=== PATIENT | male | born 1945 | race Caucasian/White ===

== ENCOUNTER → 2022-01-11 12:53 | Outpatient (CLI) | payer OTHER, SELFPAY | PROVIDERS: PCP Pediatrics; Referring Provider Pediatrics; Visit Provider Pediatrics | DX: R01.1 Cardiac murmur, unspecified (principal) | CPT/HCPCS: 93005 ==

== ENCOUNTER → 2022-11-04 15:16 | Outpatient (CLI) | payer OTHER, SELFPAY ==
[2022-11-04 15:31] LABS: Hematocrit 45.6 % (41-53); Hemoglobin 15.5 g/dL (13.5-17.5); Mean Corpuscular Hemoglobin 31.3 PG (26-34); Platelet Count 228 X10^3/uL (150-400); Red Blood Cell Count 4.95 X10^6/uL (4.5-5.9); Red Cell Distribution Width 13.1 % (11.6-14.8); White Blood Cell Count 8.9 X10^3/uL (4.5-11.0)
[2022-11-04 15:52] LABS: Alanine Aminotransferase 26 IU/L (<50); Albumin 4.4 g/dL (3.5-5.0); Albumin Globulin Ratio 1.8 (1.0-2.8); Alkaline Phosphatase 66 U/L (38-126); Aspartate Aminotransferase 32 IU/L (17-59); BUN Creatinine Ratio 18.1 (6-22); Blood Urea Nitrogen 17 mg/dL (9-20); Calcium 9.3 mg/dL (8.4-10.2); Carbon Dioxide 28 mmol/L (22-32); Chloride 103 mmol/L (98-107); Estimated Glomerular Filt Rate > 60 mL/min (>60); Globulin 2.5 g/dL (1.7-4.1); Glucose 90 mg/dL (80-110); HEMOLYSIS < 15 (0-50); Potassium 4.2 mmol/L (3.4-5.1); Sodium 138 mmol/L (137-145); Total Protein 6.9 g/dL (6.3-8.2)
[2022-11-04 15:55] LABS: High Sensitivity CRP - Cardiac 1.5 mg/L (1.0-3.0)
[2022-11-04 16:10] LABS: Vitamin D 25 Hydroxy (D3) 31.7 ng/mL (30.0-100.0)
[2022-11-04 16:21] LABS: Prostate Specific Antigen Scrn 5.62 ng/mL (0.1-4.0)
[2022-11-04 16:22] LABS: TSH w/ Reflex to FT4 0.88 uIU/mL (0.47-4.68)
[2022-11-06 06:46] LABS: PSA Free % 20.6 % (.); PSA, Total 6.8 ng/mL (0.0-4.0)
== END ==
PROVIDERS: PCP Family Medicine; Referring Provider Family Medicine; Visit Provider Family Medicine
DX: E55.9 Vitamin D deficiency, unspecified (principal); R01.1 Cardiac murmur, unspecified; R53.83 Other fatigue; Z12.5 Encounter for screening for malignant neoplasm of prostate; R97.20 Elevated prostate specific antigen [PSA]
CPT/HCPCS: 36415; 80053; 82306; 84153; 84154; 84443; 85027; 86140; G0103

== ENCOUNTER → 2022-12-12 09:17 | Outpatient (CLI) | payer OTHER, SELFPAY ==
--- NOTE | 2022-12-12 09:18 | DI.ECHO.S_ITS ---
[facility] +---------+ : : [address] : : : : [id number] : : : : Phone: [phone]---------+ Echocardiogram Report + + :Name: RAJAN ZAPATA Study Date: 12/12/2022 Height: 72 in : :[facility] ReadingLocation: Weight: 240 lb : : Gender: Male BSA: 2.3 m2 : :: 1945 Age: 77 yrs BP: 186/121 mmHg: :Reason For Study: Abnormal EKG, Heart Murmur : :Ordering Physician: Evangelist TIRADOformed By: Luz Collado : :Referring: BHARAT TIRADO : + + Interpretation Summary The left ventricle is normal in size. The ejection fraction is estimated to be 60-65%. The right ventricle is normal size. The right ventricular systolic function is normal. Mitral leaflet is thickened. Tip of the posterior mitral leaflet mildly prolapsing with calcification as well. No obvious flail leaflet. Associated eccentric at least mild mitral regurgitation. The aortic valve is moderately calcified. No aortic stenosis. The IVC is of normal diameter and collapses greater than 50% with a sniff. This suggests a low right atrial pressure of 3 mm Hg. BP: 186/121 mmHg Blood pressure was retaken at the end of the exam. Second recorded blood pressure was 175/112. The patient verbalized that he was asymptomatic. He was advised to go to the emergency department if anything changed. Procedure: A two-dimensional transthoracic echocardiogram with color flow and Doppler was performed. The study quality was technically adequate. There is no prior echocardiogram noted for this patient. Blood pressure was retaken at the end of the exam. Second recorded blood pressure was 175/112. The patient verbalized that he was asymptomatic. He was advised to go to the emergency department if anything changed. The patient was in normal sinus rhythm during the exam. Left Ventricle: The left ventricle is normal in size. There is moderate proximal septal thickening noted. There is mild concentric left ventricular hypertrophy. There is no echo evidence for significant left ventricular outflow tract obstruction. There is no thrombus. The ejection fraction is estimated to be 60-65%. There are no focal wall motion abnormalities. MV E/A: 0.88 Med Peak E' Daniel: 5.8 cm/sec E/E' med: 19.0. Right Ventricle: The right ventricle is normal size. The right ventricular systolic function is normal. Atria: The left atrial size is normal. Right atrial size is normal. There is no Doppler evidence for an interatrial shunt. Mitral Valve: Mitral leaflet is thickened. Tip of the posterior mitral leaflet mildly prolapsing with calcification as well. No obvious flail leaflet. Associated eccentric at least mild mitral regurgitation. There is prolapse of the posterior mitral valve leaflet(s). There is no mitral valve stenosis. There is mild mitral regurgitation. Aortic Valve: The aortic valve is trileaflet. The aortic valve opens well. The aortic valve is moderately calcified. There is no aortic valve stenosis. No aortic regurgitation is present. Tricuspid Valve: The tricuspid valve is normal. There is no tricuspid stenosis. There is trace tricuspid regurgitation. The right ventricular systolic pressure is estimated to be at least 26 mmHg based on an estimated right atrial pressure of 3 mm Hg. Pulmonic Valve: The pulmonic valve is not well visualized. There is no pulmonic valvular stenosis. There is no pulmonic valvular regurgitation. Great Vessels: The aortic root is normal size. The ascending aorta is mildly enlarged. The pulmonary artery is normal size. The IVC is of normal diameter and collapses greater than 50% with a sniff. This suggests a low right atrial pressure of 3 mm Hg. Pericardium/ Pleura There is no pericardial effusion. There is no pleural effusion. MMode/2D Measurements & Calculations LVIDd: 4.3 cm LVOT diam: 2.1 cm LVIDs: 2.5 cm Ao root diam: 3.4 cm FS: 41.9 % asc Aorta Diam: 4.2 cm IVSd: 1.6 cm LVPWd: 1.0 cm LV tang. diameter/BSA (cm/m^2): 1.9 LV sys. diameter/BSA (cm/m^2): 1.1 LA A2 area: 21.4 cm2 RA long axis: 4.8 cm LA A4 area: 18.9 cm2 RA area: 14.1 cm2 LA length (vol): 5.9 cm RA vol: 34.8 ml LA vol: 58.0 ml RA : 15.1 ml/m2 LA vol index: 25.2 ml/m2 RVD1 (basal): 3.7 cm LVLs ap4: 7.4 cm LVLd ap2: 8.5 cm TAPSE_phl: 3.0 cm LVLs ap2: 6.7 cm Doppler Measurements & Calculations Ao V2 max: 134.0 cm/sec LVOT Max Daniel: 102.0 cm/sec Ao V2 mean: 96.2 cm/sec LV V1 max P.2 mmHg Ao max P.0 mmHg LV V1 VTI: 21.4 cm Ao mean P.0 mmHg MADELINE(I,D): 2.4 cm2 Ao V2 VTI: 30.7 cm MADELINE(V,D): 2.6 cm2 sev ratio: 0.70 MADELINE indexed to BSA (cm^2/m^2): 1.0 MV E max daniel: 110.0 cm/sec TR max daniel: 240.3 cm/sec MV A max daniel: 125.0 cm/sec TR max P.1 mmHg MV E/A: 0.88 Med Peak E' Daniel: 5.8 cm/sec E/E' med: 19.0 Lat Peak E' Daniel: 11.2 cm/sec E/E' lat: 9.8 E/e' average: 14.4 MV dec time: 0.26 sec SV(LVOT): 74.1 ml AV VR_phl: 0.76 MADELINE(VTI)/BSA_phl: 1.1 MV P1/2t-pr_phl: 77.0 msec Reading Physician:01:43 PM
== END ==
PROVIDERS: PCP Family Medicine; Referring Provider Family Medicine; Visit Provider Family Medicine
DX: I34.1 Nonrheumatic mitral (valve) prolapse (principal); I34.0 Nonrheumatic mitral (valve) insufficiency; I77.89 Other specified disorders of arteries and arterioles; R94.31 Abnormal electrocardiogram [ECG] [EKG]; R01.1 Cardiac murmur, unspecified; I10 Essential (primary) hypertension
CPT/HCPCS: 93306

== ENCOUNTER → 2023-05-30 11:27 | Outpatient (CLI) | payer OTHER, SELFPAY ==
[2023-05-30 13:32] LABS: BUN Creatinine Ratio 17.9 (6-22); Blood Urea Nitrogen 15 mg/dL (9-20); Calcium 9.8 mg/dL (8.4-10.2); Carbon Dioxide 27 mmol/L (22-32); Chloride 102 mmol/L (98-107); Estimated Glomerular Filt Rate > 60 mL/min (>60); Glucose 88 mg/dL (80-110); HEMOLYSIS 20 (0-50); Potassium 4.4 mmol/L (3.4-5.1); Sodium 138 mmol/L (137-145)
[2023-05-30 16:35] LABS: Creatinine Urine Random 131.8 mg/dL
[2023-05-30 16:37] LABS: Microalbumi Creatinin Ratio Ur 9.8 ug/mg CR (<30); Microalbumin Urine Random 1.3 mg/dL (0-1.6)
[2023-05-31 10:53] LABS: PSA Free % 25.1 % (.); PSA, Total 5.3 ng/mL (0.0-4.0)
== END ==
PROVIDERS: PCP Family Medicine; Referring Provider Family Medicine; Visit Provider Family Medicine
DX: I10 Essential (primary) hypertension (principal); R01.1 Cardiac murmur, unspecified; R97.20 Elevated prostate specific antigen [PSA]
CPT/HCPCS: 36415; 80048; 82043; 82570; 84153; 84154

== ENCOUNTER → 2023-06-10 11:53 | Outpatient (CLI) | payer OTHER, SELFPAY ==
--- NOTE | 2023-06-10 11:55 | DI.RAD.S_ITS ---
PROCEDURE: XR KNEE LT 3V INDICATIONS: left knee pain after fall TECHNIQUE: 3 views of the knee were acquired. COMPARISON: None. FINDINGS: Bones: No fractures or dislocations. No suspicious bony lesions. Moderate tricompartmental arthritic changes. Soft tissues: Mild joint effusion. No suspicious soft tissue calcifications. IMPRESSION: No acute bony abnormality or significant effusion. Dictated by: Ml Gonsalez M.D. on 06/10/2023 at 12:34 Approved by: Ml Gonsalez M.D. on 06/10/2023 at 12:34
== END ==
LOC: RAD 11:54
PROVIDERS: PCP Family Medicine; Referring Provider Physician Assistant; Visit Provider Physician Assistant
DX: M25.562 Pain in left knee (principal)
CPT/HCPCS: 73562

== ENCOUNTER → 2023-07-31 13:19 | Outpatient (CLI) | payer OTHER, SELFPAY | LOC: LAB 13:19 | PROVIDERS: PCP Family Medicine; Referring Provider Specialist; Visit Provider Specialist | DX: R97.20 Elevated prostate specific antigen [PSA] (principal) | CPT/HCPCS: 36415; 84153 ==

== ENCOUNTER → 2023-11-22 08:56 | Outpatient (CLI) | payer OTHER, SELFPAY | PROVIDERS: PCP Family Medicine; Visit Provider Specialist | DX: N40.1 Benign prostatic hyperplasia with lower urinary tract symptoms (principal); N13.8 Other obstructive and reflux uropathy | CPT/HCPCS: 87077; 87086; 87186 ==

== ENCOUNTER 2023-11-27 09:55 | Day surgery (SDC) | payer OTHER, SELFPAY ==
[2023-11-20 15:04] VITALS: BMI 31.8
--- NOTE | 2023-11-27 | PATH_ITS ---
[facility] Accession Number: [id number] No. of containers..01 Tissue . 01 Material submitted: . prostate - PROSTATE CHIPS . 01 Diagnosis: PROSTATE CHIPS, TRANSURETHRAL PROSTATE TISSUE RESECTION: Benign prostatic parenchyma with glandular and fibromuscular hyperplasia, and focal mild chronic inflammation. Negative for high-grade prostatic intraepithelial neoplasia and invasive carcinoma. MRV 11/29/2023 1357 Local . 01 Electronically signed: . Allyson Hewitt MD, Pathologist NPI- [id number] . 01 Gross description: . Received in formalin with two patient identifiers and prostate chips, are multiple shelley soft tissue fragments admixed with hemorrhagic material weighing 2 grams and aggregating to 3.9 x 3.5 x 0.6 cm. Several orange hard calculi are identified measuring up to 0.4 cm in greatest dimension. All tissue fragments and hemorrhagic material are submitted in A1-A3 (no calculi submitted). ([id number]) /MRV 11/28/2023 1643 Local . 01 Pathologist provided ICD-10: N40.1 . 01 CPT . 208161 Specimen Comment: A courtesy copy of this report has been sent to [phone] Performed at: [address] [facility], [place], [place] [id number] MD Daniel Harrell MD Phone: [phone]
[2023-11-27 10:26] VITALS: BMI 32.4
[2023-11-27 10:31] VITALS: BP 165/89; PULSE 66; RESP 17; TEMP 36.6; O2SAT 95
--- NOTE | 2023-11-27 10:40 | PM.PREOP ---
Pre-operative Note Interval Note History & Physical reviewed/Exam performed by Physician: Yes Changes to H&P: No
[2023-11-27] MEDS: LACTATED RINGERS 1,000 ML 42 ML IV ×2 (10:45→12:22)
[2023-11-27] MEDS: ACETAMINOPHEN IV 1,000 MG/100 ML VIAL 400 MG IV (10:46)
[2023-11-27] MEDS: CEFAZOLIN 2 GM/100 ML PREMIX 100 ML IV (11:22)
--- NOTE | 2023-11-27 11:42 | SUR.OPER ---
Lithotomy on padded OR bed, head on pillow, arms secured on padded arm boards at <90 degrees abduction. Legs secured in padded yellow fins stirrups.
--- NOTE | 2023-11-27 12:00 | SUR.OPER ---
Lithotomy on padded OR bed, head on pillow, arms secured on padded arm boards at <90 degrees abduction. Legs secured in padded yellow fins stirrups.
[2023-11-27] MEDS: TRANEXAMIC ACID 1,000 MG in SODIUM CHLORIDE 0.9% 100 ML 200 MG IV ×2 (12:06→12:43)
[2023-11-27 12:56] VITALS: BP 135/75; PULSE 67; RESP 18; TEMP 36.3; O2SAT 93
--- NOTE | 2023-11-27 13:00 | P.OP_ITS ---
Operative Date/Time/Diagnoses Date of procedure: 11/27/23 Time of procedure: 12:45 Pre-op diagnosis: 1. Bladder outlet obstruction. 2. BPH. 3. Failure/dissatisfaction medical therapy. Post-op diagnosis: same Procedure & Clinicians Procedure: 1. Robotic water jet prostate ablation (Aquablation). 2. Cystoscopy /Transurethral resection of prostate. 3. Transrectal ultrasonography-diagnostic and guidance. Same procedure as scheduled: Yes Indications: 1. Bladder outlet obstruction. 2. BPH. 3. Failure/dissatisfaction with medical therapy. Surgeon: Pratibha Corea Click Yes if Unassisted: Yes Anesthesia Type: General Operative Notes Closure Type: not applicable Specimen(s): other (TUR chips) Applied: catheter (22 English three-way hematuria catheter to sterile normal saline CBI.) Estimated Blood Loss (mL): 15 Blood products transfused: none Procedure in detail: The patient was positioned in supine and was administered general anesthesia. He was then repositioned in semi lithotomy and lower abdomen, genitalia, and groin were then prepped and draped in sterile fashion. 60 cc of lubricating jelly were then instilled in the rectal vault. The TRUS and Peace was then passed on 2 the rectum and positioned parallel to the floor and midline in a complainer fashion. Next, the robotic cystoscopic hand piece was passed the lower urinary tract under direct and ultrasound guidance. The cystoscopic hand piece was lying in a complainer fashion with the TRUS probe. Calibration of the scope at the 12 position was then conducted. The lens was then withdrawn distally to a point near the verumontanum and proximal to the external sphincter. This was confirmed both by mid sagittal ultrasonography and by direct endoscopy. Next, jet alignment was confirmed at the 3 and 9 position in the transverse plane. Angle mapping was then conducted at the largest circ umferential image of the approximate mid prostate in the transverse plane. There was no notable median lobe. The scope tip was then registered in the mid sagittal plane. The plane and angle of treatment was then established by tracing the scope. Now most proximal edge of treatment was identified and labeled with cursor. Sequentially bladder neck, mid prostate and scope tip were then identified and cursors applied appropriately in numerable fashion. Now the with a rough draft completed, the treatment profile was then conducted. Bladder neck zone was established. The bladder neck, mid prostate, and scope tip within establish with fine adjustments treatment was then commenced in the 1st pass conducted under the surgeon's direct observation and control via mid sagittal ultrasonography. No additional adjustments in contours were required before conducting the 2nd pass, again under this surgeon strength observations and operational control mid sagittal plane. The treatment 1 was then withdrawn within the scope sheath and the scope removed. The resectoscope was then passed in the lower urinary tract under direct and fluoroscopic guidance. The Ellik evacuator was then utilized to evacuate any tissue debris or clot from the bladder. There was light alcantar outflow with no clot or tissue fragments recovered. The resectoscope was then fitted with the resecting loop and focal neck cautery was conducted from the 2 to 10 positioned. Additional TUR resection was utilized for untreated anterior tissue that appeared to be occluding the otherwise widely patent channel. In the vicinity of the bladder neck between the 2 and 10 position treated tissue was resected to expose much of the blood supply this area which was then focal cauterized for hemostasis. The Ellik evacuator was utilized again to clear all tissue chips, fragments, and clot. The bladder was then left partially filled and the resectoscope was removed. A 22 English three-way hematuria catheter was then passed the urinary tract, the balloon inflated 30 cc, and was then irrigated for patency. It was then connected to sterile normal saline CBI and outflow to gravity drainage. Patient was then repositioned in supine, was awakened, then transferred to a [place] awake and in stable condition. Complications: none Post-operative Condition: stable Disposition: PACU Plan for aftercare: 1. Observe in PACU on weaning CPA with possible discharge home disposition makenna estrella.
[2023-11-27 13:01] VITALS: BP 106/50; PULSE 64; RESP 13; TEMP 36.3; O2SAT 97
[2023-11-27 13:09] VITALS: BP 105/56; PULSE 64; RESP 20; TEMP 36.3; O2SAT 97
[2023-11-27 13:20] VITALS: BP 116/74; PULSE 60; RESP 20; TEMP 36.3; O2SAT 98
[2023-11-27 13:25] VITALS: BP 132/75; PULSE 59; RESP 14; TEMP 36.3; O2SAT 95
--- NOTE | 2023-11-27 16:54 | SUR.PHASEII ---
Notified Dr Corea of grade III hematuria at discharge . Okay to discharge patient home. Patient given explicit instructions regarding catheter care and manual flushing if needed. V/U. at bedside during instructions.
== END 2023-11-27 16:56 | disposition home or self-care (01) ==
PROVIDERS: PCP Family Medicine; Referring Provider Specialist; Visit Provider Specialist
PROC: 0VT08ZZ Resection of Prostate, Via Natural or Artificial Opening Endoscopic (ICD-10-PCS; CPT 0421T; principal; 2023-11-27 11:45)
DX: N40.1 Benign prostatic hyperplasia with lower urinary tract symptoms (principal); N13.8 Other obstructive and reflux uropathy; R33.9 Retention of urine, unspecified
CPT/HCPCS: 0421T; C2596; J0136; J0330; J0690; J1100; J1170; J2405; J2704

== ENCOUNTER → 2023-11-30 15:27 | Outpatient (CLI) | payer OTHER, SELFPAY | PROVIDERS: PCP Family Medicine; Visit Provider Specialist | DX: N40.1 Benign prostatic hyperplasia with lower urinary tract symptoms (principal); N13.8 Other obstructive and reflux uropathy | CPT/HCPCS: 87086 ==

== ENCOUNTER → 2024-01-11 14:02 | Outpatient (CLI) | payer OTHER, SELFPAY | PROVIDERS: PCP Family Medicine; Visit Provider Urology | DX: N40.1 Benign prostatic hyperplasia with lower urinary tract symptoms (principal); N13.8 Other obstructive and reflux uropathy; Z68.32 Body mass index [BMI] 32.0-32.9, adult | CPT/HCPCS: 51798; 81002; 87077; 87086; 87186; 99213 ==

== ENCOUNTER → 2024-03-15 11:27 | Outpatient (CLI) | payer OTHER, SELFPAY ==
[2024-03-15 12:14] LABS: Add Manual Diff / Slide Review NO; Basophils Absolute Auto 100 /uL (0-100); Basophils Percent Auto 0.9 % (0-2); Eosinophils Absolute Auto 100 /uL (0-450); Hematocrit 45.9 % (41-53); Hemoglobin 15.5 g/dL (13.5-17.5); Lymphocytes Absolute Auto 1900 /uL (1100-4500); Lymphocytes Percent Auto 32.1 % (25-40); Mean Corpuscular HGB Conc 33.7 % (30-36); Mean Corpuscular Hemoglobin 30.7 PG (26-34); Mean Corpuscular Volume 90.9 fL (80-100); Monocytes Absolute Auto 500 /uL (0-900); Neutrophils Absolute Auto 3300 /uL (1500-7000); Platelet Count 247 X10^3/uL (150-400); Red Blood Cell Count 5.06 X10^6/uL (4.5-5.9); Red Cell Distribution Width 13.4 % (11.6-14.8); White Blood Cell Count 5.9 X10^3/uL (4.5-11.0)
[2024-03-15 12:20] LABS: Hemoglobin A1C% w Est Avg Glu 5.8 % (4.0-6.0)
[2024-03-15 12:30] LABS: Alanine Aminotransferase 19 IU/L (<50); Albumin 4.5 g/dL (3.5-5.0); Albumin Globulin Ratio 1.7 (1.0-2.8); Alkaline Phosphatase 54 U/L (38-126); Aspartate Aminotransferase 31 IU/L (17-59); BUN Creatinine Ratio 15.9 (6-22); Bilirubin Total 0.9 mg/dL (0.2-1.3); Blood Urea Nitrogen 14 mg/dL (9-20); Calcium 9.2 mg/dL (8.4-10.2); Carbon Dioxide 26 mmol/L (22-32); Chloride 105 mmol/L (98-107); Cholesterol 172 mg/dL (140-199); Estimated Glomerular Filt Rate > 60 mL/min (>60); Globulin 2.6 g/dL (1.7-4.1); Glucose 91 mg/dL (80-110); HDL Cholesterol 36 mg/dL (40-60); HEMOLYSIS 41 (0-50); LDL Cholesterol Calculated 103 mg/dL (<100); Potassium 4.1 mmol/L (3.4-5.1); Sodium 138 mmol/L (137-145); Total Protein 7.1 g/dL (6.3-8.2); Triglycerides 165 mg/dL (35-150)
[2024-03-18 11:37] LABS: Lipoprotein (a) 74.3 nmol/L (<75.0)
== END ==
PROVIDERS: PCP Family Medicine; Referring Provider Family Medicine; Visit Provider Family Medicine
DX: R01.1 Cardiac murmur, unspecified (principal); I10 Essential (primary) hypertension; Z13.220 Encounter for screening for lipoid disorders; R73.9 Hyperglycemia, unspecified; Z83.430 Family history of elevated lipoprotein(a); M62.838 Other muscle spasm; R04.0 Epistaxis; E66.9 Obesity, unspecified; Z68.30 Body mass index [BMI] 30.0-30.9, adult
CPT/HCPCS: 36415; 80053; 80061; 83036; 83695; 85025

== ENCOUNTER → 2024-03-27 10:47 | Outpatient (CLI) | payer OTHER, SELFPAY ==
--- NOTE | 2024-03-27 10:48 | DI.MRI.S_ITS ---
PROCEDURE: MR BRAIN (IAC) WWO CON INDICATIONS: HEARING LOSS TECHNIQUE: Noncontrast sagittal T1 spin echo, axial FLAIR, axial gradient echo, axial diffusion and ADC through the brain. Axial thin-slice 3D CISS, coronal TruFISP, axial T1 spin echo with fat saturation through the internal auditory canals. After the administration of contrast, thin slice axial and coronal T1 spin echo with fat saturation through the internal auditory canals, and axial and coronal and sagittal T1 spin echo with fat saturation through the brain. COMPARISON: None. FINDINGS: Image quality: Excellent. Cerebellopontine angles: No cerebellopontine angle masses. Inner ear structures appear normally formed. No suspicious enhancement in the internal auditory canal or along the course of the 7th cranial nerve. CSF spaces: Ventricles are normal in size and shape. No extra-axial fluid collections. Basal cisterns are patent. Brain: No intracranial bleeds or mass effects. Esquivel-white matter interface is intact. No abnormal intracranial enhancement. Diffusion weighted images demonstrate no acute ischemic insults. Brainstem appears normal. Normal intravascular flow voids are present. Note is made of age-appropriate brain parenchymal volume loss and chronic small vessel ischemic changes. Symmetric calcification can be seen involving the basal ganglia, which is considered to be normal for age. Skull and face: Calvarial marrow signal is normal. Orbits appear normal. Sinuses: Sinuses and mastoids are clear. IMPRESSION: No significant abnormality is seen. Specifically, no masses or abnormal enhancement are seen within the cerebellopontine angle cisterns or within the internal auditory canals. Dictated by: Kyree Rausch M.D. on 03/27/2024 at 11:31 Approved by: Kyree Rausch M.D. on 03/27/2024 at 11:32
== END ==
PROVIDERS: PCP Family Medicine; Referring Provider Otolaryngology; Visit Provider Otolaryngology
DX: H90.3 Sensorineural hearing loss, bilateral (principal)
CPT/HCPCS: 70553; A9579